=== PATIENT | male | born 1945 | race Caucasian/White ===

== ENCOUNTER → 2017-05-18 | Outpatient (REF) ==
[~2017-05-18] MED LIST: ASPIRIN 32325 MG/TAB PO; ASPIRIN 81M81 MG/TA2 PO; COREG 6.256.25 MG/TA PO; FLOMAX 0.40.4 MG/CAP PO; FOLIC ACID 11 MG/TA1 PO; LASIX 20MG TABL20 MG PO; LIPITOR 10MG10 MG PO; LIPITOR20 MG PO; LOPRESSOR 225 MG/TAB PO; LOPRESSOR 550 MG/TAB PO; NATURE'S BLEND100 M2 PO; NITROSTAT0.4 MG/TAB SL; NO HOME MEDICATIONS; NORVASC 10MG10 MG PO; PLAVIX 75MG TAB75 MG PO; THIAMINE 1100 MG/TAB PO; TYLENOL EXTRA500 M1 PO; VASOTEC 10M10 MG/TAB PO; XARELTO STARTER20 MG PO; XARELTO10 MG PO; XARELTO15 MG PO; XARELTO20 MG PO; ZESTRIL 5MG5 MG PO; ZYLOPRIM 100MG100 MG PO
== END ==
LOC: ZLAB.WCH 11:51
DX: Z01.89 Encounter for other specified special examinations (principal)